=== PATIENT | female | born 1955 | race Caucasian/White ===

== ENCOUNTER 2016-09-02 10:33 | Observation (INO) | payer OTHER ==
[~2016-09-02] VITALS: Ht 165.1 cm; Wt 129.6 kg
[~2016-09-02 10:33] MED LIST: BETADINE OINT (30 GM TOP; COLACE 100MG C100 MG PO; FOSAMAX70 MG PO; GLUCOPHAGE1000 MG PO; JANUVIA100 MG PO; KEFLEX500 MG PO; LASIX 40 MG TAB40 MG PO; LEVEMIR FL100 UNIT/1 SC; LIPITOR TAB 2020 MG PO; MIRALAX17 GM PO; PROZAC40 MG PO; REMERON45 MG PO; RISPERDAL1 MG PO; SENNA8.6 MG PO; SYMBICORT 80-10.2 GM INH; SYNTHROID50 MCG PO; ZESTRIL20 MG PO; [UNRECOGNIZED DRUG - CODE] SC
[2016-09-02 12:52] LABS: HEMOGLOBIN 11.1 gm/dl (12.3-15.3); RED BLOOD COUNT 4.09 M/UL (4.00-5.10)
[2016-09-02] MEDS ORDERED: IMBRUVICA140 MG PO (15:57)
[2016-09-03 06:52] LABS: HEMOGLOBIN 10.7 gm/dl (12.3-15.3); RED BLOOD COUNT 4.02 M/UL (4.00-5.10); WHITE BLOOD COUNT 15.7 K/UL (4.5-11.0)
[2016-09-03] MEDS ORDERED: AUGMENTIN 875-1 EACH PO (15:56)
[2016-09-05 15:13] LABS: WHITE BLOOD COUNT 16.7 K/UL (4.5-11.0)
== END 2016-09-03 17:35 | disposition home or self-care (01) ==
LOC: ER1 10:33 → ZEROF 13:53 → MED SURG 4 21:30
PROVIDERS: Physician Assistant Medical; ADMIT Internal Medicine
DX: J11.1 Influenza due to unidentified influenza virus with other respiratory manifestations (principal); J20.9 Acute bronchitis, unspecified; D72.829 Elevated white blood cell count, unspecified; N17.9 Acute kidney failure, unspecified; E87.1 Hypo-osmolality and hyponatremia; C91.90 Lymphoid leukemia, unspecified not having achieved remission; E11.40 Type 2 diabetes mellitus with diabetic neuropathy, unspecified; E03.9 Hypothyroidism, unspecified; I10 Essential (primary) hypertension; G47.33 Obstructive sleep apnea (adult) (pediatric); J45.909 Unspecified asthma, uncomplicated; E78.5 Hyperlipidemia, unspecified; Z85.42 Personal history of malignant neoplasm of other parts of uterus; Z90.710 Acquired absence of both cervix and uterus; Z79.2 Long term (current) use of antibiotics; Z79.51 Long term (current) use of inhaled steroids; Z79.899 Other long term (current) drug therapy; Z90.49 Acquired absence of other specified parts of digestive tract; Z90.89 Acquired absence of other organs; Z82.49 Family history of ischemic heart disease and other diseases of the circulatory system; Z83.3 Family history of diabetes mellitus; Z80.0 Family history of malignant neoplasm of digestive organs
CPT/HCPCS: 96374; 36415; 71010; 80053; 81001; 82803; 82962; 83605; 83735; 83880; 84439; 84443; 84484; 85025; 93005; 93971; 94640; 94660; 94664; 96375; 96376; 99284; G0378; J0692; J3370; J7030; J7050; J7070

== ENCOUNTER 2016-11-25 16:46 | Inpatient (IN) | payer OTHER ==
[~2016-11-25] VITALS: Ht 165.1 cm; Wt 133.8 kg
[~2016-11-25 16:46] MED LIST changes: +AUGMENTIN 875-1 EACH PO; +IMBRUVICA140 MG PO
[2016-11-25 17:36] LABS: RED BLOOD COUNT 3.27 M/UL (4.00-5.10); WHITE BLOOD COUNT 12.6 K/UL (4.5-11.0)
[2016-11-25] MEDS ORDERED: FOSAMAX70 MG PO (22:52)
[2016-11-25] MEDS ORDERED: IMBRUVICA140 MG PO (22:52)
[2016-11-25] MEDS ORDERED: ZYLOPRIM 100 M100 MG PO (22:53)
[2016-11-25] MEDS ORDERED: VENTOLIN/PROVE0.5 ML INH (22:53)
[2016-11-25] MEDS ORDERED: AMLODIPINE BESY10 MG PO (22:54)
[2016-11-25] MEDS ORDERED: LIPITOR TAB 2020 MG PO (22:54)
[2016-11-25] MEDS ORDERED: CHLORTHALIDONE25 MG PO (22:54)
[2016-11-25] MEDS ORDERED: FLUOXETINE HCL20 MG PO ×2 (22:55→22:57)
[2016-11-25] MEDS ORDERED: COLACE 100MG C100 MG PO (22:55)
[2016-11-25] MEDS ORDERED: FUROSEMIDE20 MG PO (22:57)
[2016-11-25] MEDS ORDERED: NEURONTIN 400400 MG PO (22:57)
[2016-11-25] MEDS ORDERED: TRESIBA SQ (22:59)
[2016-11-25] MEDS ORDERED: HUMALOG100 UNIT/2 SQ (23:00)
[2016-11-25] MEDS ORDERED: IMDUR ER TAB 3030 MG PO (23:00)
[2016-11-25] MEDS ORDERED: SYNTHROID125 MCG PO (23:00)
[2016-11-25] MEDS ORDERED: LISINOPRIL20 MG PO (23:01)
[2016-11-25] MEDS ORDERED: METFORMIN HCL1000 MG PO (23:01)
[2016-11-25] MEDS ORDERED: MIRALAX17 GM PO (23:02)
[2016-11-25] MEDS ORDERED: MIRTAZAPINE45 MG PO (23:02)
[2016-11-25] MEDS ORDERED: RISPERDAL 1MG TA1 MG PO (23:03)
[2016-11-25] MEDS ORDERED: JANUVIA 100 MG100 MG PO (23:03)
[2016-11-26 05:13] LABS: HEMOGLOBIN 9.5 gm/dl (12.3-15.3); RED BLOOD COUNT 3.46 M/UL (4.00-5.10)
[2016-11-26 05:14] LABS: WHITE BLOOD COUNT 8.5 K/UL (4.5-11.0)
[2016-11-28] MEDS ORDERED: FERROUS SULFAT325 MG PO (12:45)
== END 2016-11-28 14:30 | disposition home or self-care (01) | DRG 291 ==
LOC: EDBD 16:46 → ER1 16:46 → M/S 20:00 → ZEROF 20:00 → M/S 22:02
PROVIDERS: Internal Medicine; Preventive Medicine Occupational Medicine; ADMIT Internal Medicine
DX: I13.0 Hypertensive heart and chronic kidney disease with heart failure and stage 1 through stage 4 chronic kidney disease, or unspecified chronic kidney disease (principal); I50.33 Acute on chronic diastolic (congestive) heart failure; J96.21 Acute and chronic respiratory failure with hypoxia; J96.02 Acute respiratory failure with hypercapnia; N17.9 Acute kidney failure, unspecified; J44.1 Chronic obstructive pulmonary disease with (acute) exacerbation; Z68.42 Body mass index [BMI] 45.0-49.9, adult; N18.9 Chronic kidney disease, unspecified; E11.22 Type 2 diabetes mellitus with diabetic chronic kidney disease; E11.65 Type 2 diabetes mellitus with hyperglycemia; D50.9 Iron deficiency anemia, unspecified; Z99.81 Dependence on supplemental oxygen; M10.9 Gout, unspecified; E78.5 Hyperlipidemia, unspecified; M19.90 Unspecified osteoarthritis, unspecified site; E03.9 Hypothyroidism, unspecified; E66.9 Obesity, unspecified; Z79.899 Other long term (current) drug therapy; Z79.4 Long term (current) use of insulin
CPT/HCPCS: ECHO; 36415; 36600; 71010; 80048; 80053; 81001; 82550; 82553; 82570; 82728; 82746; 82803; 82962; 83540; 83550; 83605; 83735; 83874; 83880; 84100; 84156; 84300; 84439; 84443; 84484; 85025; 85610; 85730; 87040; 93005; 93306; 94640; 94660; 94664; 96374; 96375; 99285; J0696; J1650; J1756; J1940; J2930; J7030; J7040; J7050

== ENCOUNTER 2020-09-07 11:38 | Emergency (ER) | payer MEDICARE, OTHER ==
[~2020-09-07 11:38] MED LIST changes: +AMLODIPINE BESY10 MG PO; +ASPIRIN CHEWABL81 MG PO; +CEFUROXIME500 MG PO; +CHLORTHALIDONE25 MG PO; +FERROUS SULFAT325 MG PO; +FLUOXETINE HCL20 MG PO; +FUROSEMIDE20 MG PO; +HUMALOG100 UNIT/3 SQ; +HYGROTON TAB 2525 MG PO; +IMDUR ER TAB 3030 MG PO; +IMDUR ER TAB 6060 MG PO; +JANUVIA 100 MG100 MG PO; +LEXAPRO20 MG PO; +LISINOPRIL20 MG PO; +METFORMIN HCL1000 MG PO; +MIRTAZAPINE45 MG PO; +NEURONTIN 400400 MG PO; +NORCO 5-325 TA1 EACH PO; +NORCO 7.5-3251 EACH PO; +OXYGEN; +OZEMPIC SQ; +REMERON45 M1 PO; -REMERON45 MG PO; +RISPERDAL 1MG TA1 MG PO; +SYNTHROID125 MCG PO; +TRESIBA FL100 UNIT/1 SQ; +TRESIBA SQ; +VENTOLIN/PROVE0.5 ML INH; +VIBRAMYCIN100 MG PO; +ZYLOPRIM 100 M100 MG PO
[2020-09-07 12:12] LABS: RED BLOOD COUNT 3.93 M/UL (4.00-5.10); WHITE BLOOD COUNT 12.7 K/UL (4.5-11.0)
[2020-09-07 12:37] LABS: BUN/CREATININE RATIO 22 (0-10)
[2020-09-07] MEDS ORDERED: CEPHALEXIN500 M1 PO (17:28)
== END 2020-09-07 17:46 | disposition home or self-care (01) ==
LOC: ER1 11:38
PROVIDERS: Physician Assistant
DX: L03.115 Cellulitis of right lower limb (principal); I11.0 Hypertensive heart disease with heart failure; E11.9 Type 2 diabetes mellitus without complications; Z20.822 Contact with and (suspected) exposure to COVID-19; I50.9 Heart failure, unspecified; E78.5 Hyperlipidemia, unspecified; J44.9 Chronic obstructive pulmonary disease, unspecified; N18.30 Chronic kidney disease, stage 3 unspecified; Z90.49 Acquired absence of other specified parts of digestive tract; Z90.89 Acquired absence of other organs; Z90.710 Acquired absence of both cervix and uterus
CPT/HCPCS: 0240U; 36415; 36600; 71045; 71250; 80053; 81001; 82550; 82553; 82803; 83874; 83880; 84439; 84443; 84484; 85025; 93005; 93970; 96374; 96376; 99285